=== PATIENT | male | born 1995 | race Caucasian/White ===

== ENCOUNTER 2018-01-13 19:34 | Emergency (ER) | payer OTHER, SELFPAY ==
[2018-01-13 19:37] VITALS: BP 132/77; PULSE 70; RESP 17; TEMP 36.7; O2SAT 100; BMI 29.2
--- NOTE | 2018-01-13 19:37 | ED_ITS ---
HPI - URI/Sore Throat <Thuy Perez PA-C - Last Filed: 01/13/18 21:58> General Chief Complaint: Ear Stated Complaint: SINUS INFECTION,FEVER,LEFT EYE ITCHING RED Time Seen by Provider: 01/13/18 19:36 Source: patient Mode of arrival: ambulatory Limitations: no limitations History of Present Illness HPI Narrative: This generally healthy 22-year-old complains of 2 day history of mild sore throat, then discolored nasal drainage and congestion. He states that along with this, both ears have been hurting, but especially on the left side. He did rinse them with peroxide, but still feel congested and painful. Today, he has had left eye itching and irritation with discolored drainage. He states that his vision is okay. He has had some chills and sweats, unknown whether any fever. He denies cough, wheeze, or dyspnea. 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 He denies any rash or other complaints on systems review. Related Data Home Medications Medication Instructions Recorded Confirmed bupropion HCl [Wellbutrin XL] 150 mg PO QAM 01/13/18 01/13/18 Previous Rx's Medication Instructions Recorded buspirone 5 mg PO BID #60 tab 08/01/17 sertraline [Zoloft] 150 mg PO QDAY #45 tab 08/01/17 azithromycin 250 mg PO DAILY 4 Days tab 01/13/18 Allergies Allergy/AdvReac Type Severity Reaction Status Date / Time amoxicillin [AMOXICILLIN] AdvReac Intermediate RASH Verified 01/13/18 19:40 Review of Systems <Thuy Perez PA-C - Last Filed: 01/13/18 21:58> Review of Systems All systems reviewed & are unremarkable except as noted in HPI and below Exam <Thuy Perez PA-C - Last Filed: 01/13/18 21:58> Narrative Exam Narrative: GENERAL APPEARANCE: Patient sitting comfortably, in no distress. HEAD: No sinus TTP. EYES: PERRL, EOMI. Left conjunctiva is injected with moderate. Went drainage EARS: Normal auditory canals, TMS intact, left is erythematous and flat, right is dull ORAL CAVITY: Normal oropharynx. THROAT: Minimal erythema, no exudate, PND noted NECK/THYROID: Neck supple, full range of motion, few small anterior cervical nodes, no posterior or supraclavicular nodes LUNGS: Clear to auscultation bilaterally, no cough on exam. HEART: RRR without murmur, nl S1, S2, no S3 or S4. Initial Vital Signs Initial Vital Signs: Vital Signs Temperature 98.0 F 01/13/18 19:37 Pulse Rate 70 01/13/18 19:37 Respiratory Rate 17 01/13/18 19:37 Blood Pressure 132/77 H 01/13/18 19:37 Pulse Oximetry 100 01/13/18 19:37 <Kane Macias DO - Last Filed: 01/14/18 04:59> Initial Vital Signs Initial Vital Signs: Vital Signs Temperature 98.0 F 01/13/18 19:37 Pulse Rate 70 01/13/18 19:37 Respiratory Rate 17 01/13/18 19:37 Blood Pressure 132/77 H 01/13/18 19:37 Pulse Oximetry 100 01/13/18 19:37 Course <Thuy Perez PA-C - Last Filed: 01/13/18 21:58> Orders Ordered: Discontinued Medications Azithromycin (Zithromax) 500 mg PO NOW ONE Stop: 01/13/18 19:58 Last Admin: 01/13/18 20:15 Dose: 500 mg Polymyxin/Trimethoprim Sulfate (Polytrim Prepack) 1 bottle MISC SEEINSTR ONE Stop: 01/13/18 19:58 Last Admin: 01/13/18 20:14 Dose: 1 drop Vital Signs - 8 hr 01/13/18 19:37 Temperature 98.0 F Pulse Rate 70 Respiratory Rate 17 Blood Pressure 132/77 H Pulse Oximetry 100 <Kane Macias DO - Last Filed: 01/14/18 04:59> Orders Ordered: Discontinued Medications Azithromycin (Zithromax) 500 mg PO NOW ONE Stop: 01/13/18 19:58 Last Admin: 01/13/18 20:15 Dose: 500 mg Polymyxin/Trimethoprim Sulfate (Polytrim Prepack) 1 bottle MISC SEEINSTR ONE Stop: 01/13/18 19:58 Last Admin: 01/13/18 20:14 Dose: 1 drop Vital Signs - 8 hr 01/13/18 19:37 Temperature 98.0 F Pulse Rate 70 Respiratory Rate 17 Blood Pressure 132/77 H Pulse Oximetry 100 Discharge Plan Departure Patient Disposition: Home, Self-Care Clinical Impression: Otitis media, Conjunctivitis Discharge Date/Time: 01/13/18 20:30 Interventions: ED Discharge Assessment Last Done: 01/13/18 20:29 Instructions: Middle Ear Infection, DI for Conjunctivitis Activity Restrictions/Additional Instructions: You have a left ear infection and pinkeye in your left eye. As we talked about , this could be viral given your exposures at work, however given the pain and appearance of your left ear versus the right, it is reasonable to treat with antibiotics for a bacterial infection. 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 Use a warm pack or washcloth on your eye frequently to help with the irritation and drainage. You may use artificial tears as well. Apply the antibiotic drops every 6 hours (2 drops) to the left eye while awake. Return as we discussed if you are feeling acutely worse. You should follow up with your PCP if not feeling better after a few days on the medications. Prescriptions: New azithromycin 250 mg tablet 250 mg PO DAILY 4 Days RF: 0 No Action buspirone 5 MG tablet 5 mg PO BID Qty: 60 RF: 2 sertraline [Zoloft] 100 MG tablet 150 mg PO QDAY Qty: 45 RF: 2 bupropion HCl [Wellbutrin XL] 150 mg Tablet Extended Release 24 Hr 150 mg PO QAM RF: 0 Referrals: [facility] [Other] <Kane Macias DO - Last Filed: 01/14/18 04:59> [facility]cece ED Attending Basil Attestation: I was immediately available in the department for consultation. Documentation has been reviewed. I agree with assessment and plan.
[2018-01-13] MEDS: POLYMY B/TRIMETH OPHTH PREPACK 1 BOTTLE MISC (20:14)
[2018-01-13] MEDS: AZITHROMYCIN 250 MG TABLET 500 MG PO (20:15)
== END 2018-01-13 20:30 | disposition home or self-care (01) ==
PROVIDERS: Emergency Provider Internal Medicine; PCP Family Medicine
DX: H66.90 Otitis media, unspecified, unspecified ear (principal); H10.9 Unspecified conjunctivitis
CPT/HCPCS: 99282; 99283

== ENCOUNTER → 2020-02-17 15:09 | Outpatient (CLI) | payer OTHER, SELFPAY ==
--- NOTE | 2020-02-17 | DI.CT.S_ITS ---
PROCEDURE: CT KIDNEY URETER BLADDER (KUB) INDICATIONS: Unspecified renal colic TECHNIQUE: Noncontrast 5 mm thick sections acquired from the diaphragms to the symphysis. 5 mm thick coronal and sagittal reformats were then performed. For radiation dose reduction, the following was used: automated exposure control, adjustment of mA and/or kV according to patient size. COMPARISON: None. FINDINGS: Image quality: Excellent. Lung bases: Lung bases are clear. Heart size is normal. Urinary system: Both kidneys are normal in size. There is a nonobstructing 2 mm calculus within the left interpolar kidney. There is a nonobstructing 2 mm calculus within the right interpolar kidney. No hydronephrosis or perinephric fat stranding. There is mild right ureteral dilatation proximally. There is a 3 mm calculus within the proximal right ureter. There is a 3 mm calculus within the distal right ureter. No left ureteral dilatation or calcification. Bladder wall thickness is normal; no calcified bladder stones. Other solid organs: Liver is normal in size. Gallbladder is within normal limits. Pancreas is normal in contours. Spleen is normal in size. No adrenal nodules. Peritoneum and bowel: Unenhanced bowel loops demonstrate normal wall thickness and caliber. No free fluid or air. Normal appendix. Nodes and vessels: No retroperitoneal or mesenteric adenopathy by size criteria. Aorta and inferior vena cava are normal in caliber. Abdominal wall: No ventral hernias. Pelvis: No free pelvic fluid. No inguinal hernias or adenopathy. Bones: No suspicious bony lesions. No vertebral body compression fractures. IMPRESSION: 1. Nonobstructing bilateral renal calculi. 2. Nonobstructing right ureteral calculi. 3. Normal appendix. Dictated by: Amauri Jimenez M.D. on 02/17/2020 at 17:16 Approved by: Amauri Jimenez M.D. on 02/17/2020 at 17:18
== END ==
PROVIDERS: PCP Physician Assistant Medical; Referring Provider Physician Assistant Medical; Visit Provider Physician Assistant Medical
DX: N23 Unspecified renal colic (principal); N20.0 Calculus of kidney; N20.1 Calculus of ureter; Z87.442 Personal history of urinary calculi
CPT/HCPCS: 74176

== ENCOUNTER 2020-02-20 23:58 | Emergency (ER) | payer OTHER, SELFPAY ==
--- NOTE | 2020-02-21 00:22 | ED.GENADULT ---
HPI - General Adult General Chief complaint: Back Pain/Injury Stated complaint: kidney stone pain Time Seen by Provider: 02/21/20 00:10 Source: patient Mode of arrival: Ambulatory Limitations: no limitations History of Present Illness HPI narrative: Patient is a 24-year-old male here for evaluation right-sided flank pain and when he thinks is a kidney stone. He states that he has had kidney stones before specially on the right side and this feels just like this. He states that her of this week he had a CT scan performed at this hospital for evaluation of the stones. This is ordered by his primary provider. He does not know of the results of the CT scan. Did try a oral pain medication at home without any improvement of his symptoms. Had vomiting in the waiting room. Was diaphoretic. Related Data Previous Rx's Medication Instructions Recorded buspirone 5 mg tablet 5 mg PO BID #180 tab 09/11/19 bupropion HCl 150 mg 24 hr tablet, 150 mg PO QAM #90 tab 12/26/19 extended release sertraline 100 mg tablet 200 mg PO DAILY #180 tab 12/30/19 Allergies Allergy/AdvReac Type Severity Reaction Status Date / Time amoxicillin [AMOXICILLIN] AdvReac Intermediate RASH Verified 01/07/20 10:38 Review of Systems Constitutional Constitutional: Denies fever(s) Cardiovascular Cardiovascular: Denies chest pain and Denies dyspnea Respiratory Respiratory: Denies dyspnea Gastrointestinal Gastrointestinal: Reports abdominal pain, Denies change in bowel habits, Reports nausea and Reports vomiting Genitourinary Genitourinary: Denies dysuria Genitourinary: Denies dysuria Musculoskeletal Musculoskeletal: Denies arthralgias and Denies myalgias Integumentary/Breasts Skin/Breast: Denies rash Neurologic Neurologic: Denies behavioral changes Psychiatric Psychiatric: Denies behavioral changes Hematologic/Lymphatic Hematologic/Lymphatic: Denies easy bleeding and Denies easy bruising Allergic/Immunologic Allergic/Immunologic: Denies urticaria Patient History Medical History Depression with anxiety (Chronic) Nephrolithiasis (Resolved) Surgical History History of lumpectomy of both breasts (Resolved) Hx of tympanostomy tubes (Resolved) Spermatocele (Resolved) Social History Smoking Status: Current every day smoker Tobacco: How many years used: 4 alcohol intake: never substance use type: marijuana Smoking Status: Current every day smoker (1/2 ppd approx) alcohol intake frequency: 0-2 drinks per day Substance Use Type: marijuana Exam Initial Vital Signs Initial Vital Signs: Vital Signs Pulse Rate 40 L 02/21/20 00:40 Respiratory Rate 15 02/21/20 00:40 Blood Pressure 154/90 H 02/21/20 00:40 Pulse Oximetry 99 02/21/20 00:40 Const General: cooperative, No comfortable and diaphoretic Limitations: mental status not altered HENMT Head: normal to inspection and normocephalic Resp Effort & Inspection: normal respiratory effort Cardio Rate: regular rate Back/Spine/Pelvis Back: CVA tenderness right Skin Lesions: no lesions Rashes: no rashes Neuro General: patient alert and patient awake Cognition: normal cognition Speech: speech normal Extrem General: normal to inspection and capillary refill normal Psych Appearance: grossly normal and well kempt Course Orders Ordered: ED Orders 02/21/20 00:15 Urinalysis and Microscopic Stat 02/21/20 00:25 Basic Metabolic Panel Stat Complete Blood Count AUTO DIFF Stat Discontinued Medications Hydromorphone HCl (Dilaudid) 1 mg IV NOW ONE Stop: 02/21/20 00:39 Last Admin: 02/21/20 00:48 Dose: 1 mg Documented by: BRYON Lidocaine HCl 6.9 ml/ Sodium (Chloride) 56.9 mls @ 341.4 mls/hr IV NOW ONE Stop: 02/21/20 00:37 Last Admin: 02/21/20 00:46 Dose: Not Given Documented by: BRYON Ketorolac Tromethamine (Toradol) 30 mg IV NOW ONE Stop: 02/21/20 00:27 Last Admin: 02/21/20 00:37 Dose: 30 mg Documented by: MARY Ondansetron HCl (Zofran) 4 mg IV NOW ONE Stop: 02/21/20 00:27 Last Admin: 02/21/20 00:37 Dose: 4 mg Documented by: MARY Ondansetron HCl (Zofran Odt Prepack) 1 bottle MISC SEEINSTR ONE Stop: 02/21/20 02:00 Last Admin: 02/21/20 02:14 Dose: 1 bottle Documented by: MARY Vital Signs Vital signs: Vital Signs - 8 hr 02/21/20 00:40 02/21/20 00:41 02/21/20 01:00 Temperature 98.3 F Pulse Rate 40 L 42 L 40 L Respiratory Rate 15 21 22 Blood Pressure 154/90 H 148/90 H Pulse Oximetry 99 97 96 02/21/20 01:02 02/21/20 01:30 02/21/20 02:00 Temperature Pulse Rate 45 L 44 L 51 L Respiratory Rate 19 19 22 Blood Pressure 135/81 108/60 110/60 Pulse Oximetry 96 97 100 Medical Decision Making Lab Data Lab results reviewed: Yes I reviewed the patient's lab results. Result diagrams: 02/21/20 00:25 02/21/20 00:25 Labs: Lab Results 02/21/20 02/21/20 02/21/20 Range/Units 00:15 00:25 00:25 WBC 18.1 H (4.5-11.0) X10^3/uL RBC 4.77 (4.5-5.9) X10^6/uL Hgb 15.4 (13.5-17.5) g/dL Hct 43.6 (41-53) % MCV 91.4 (80-100) fL MCH 32.4 (26-34) PG MCHC 35.4 (30-36) % RDW 12.9 (11.6-14.8) % Plt Count 297 (150-400) X10^3/uL Neut % (Auto) 79.1 H (50-75) % Lymph % (Auto) 11.7 L (25-40) % [place] % (Auto) 7.3 (3-14) % Eos % (Auto) 1.2 L (2-4) % Baso % (Auto) 0.7 (0-2) % Neut # (Auto) 28489 H (5872-3662) /uL Lymph # (Auto) 2100 (3958-3765) /uL [place] # (Auto) 1300 H (0-900) /uL Eos # (Auto) 200 (0-450) /uL Baso # (Auto) 100 (0-100) /uL Sodium 140 (137-145) mmol/L Potassium 3.9 (3.4-5.1) mmol/L Chloride 106 (98-107) mmol/L Carbon Dioxide 23 (22-32) mmol/L BUN 23 H (9-20) mg/dL Creatinine 0.99 (0.66-1.25) mg/dL Estimated GFR > 60.0 (>60) mL/min BUN/Creatinine Ratio 23.2 H (6-22) Glucose 149 H (70-100) mg/dL Calcium 9.5 (8.4-10.2) mg/dL Urine Color Yellow Urine Appearance Clear Urine pH 5.0 (4.5-8.0) Ur Specific [place] >=1.030 H (1.000-1.035) Urine Protein 1+ H (Negative) Urine Glucose (UA) Negative (Negative) g/dL Urine Ketones Trace H (NEGATIVE) Urine Occult Blood 3+ H (Negative) Urine Nitrate Negative (Negative) Urine Bilirubin Negative (NEGATIVE) Urine Urobilinogen 0.2 (0.2) E.U./dL Ur Leukocyte Esterase Negative (NEGATIVE) Urine RBC 1-5/hpf (0-5/HPF) Urine WBC 0-1/hpf (0-5/HPF) Urine Bacteria None seen (None) Urine Mucus 1+ H (Negative) Ur Culture Indicated? Cult not indicated Imaging Data CT scan - abdomen/pelvis: Radiologist's Impression: Geovani Chery 24 M 1995 [place] [address] CT Scan Report Signed Patient: Geovani Chery CMR#: [id number] : 1995Acct:[id number] Age/Sex: 24 / MDate of Service: 02/17/20 Loc: CT Accession Number: [id number] Procedure: CT kidney ureter bladder (KUB) Ordering Provider: Mellisa Pierre PROCEDURE: CT KIDNEY URETER BLADDER (KUB) INDICATIONS: Unspecified renal colic TECHNIQUE: Noncontrast 5 mm thick sections acquired from the diaphragms to the symphysis. 5 mm thick coronal and sagittal reformats were then performed. For radiation dose reduction, the following was used: automated exposure control, adjustment of mA and/or kV according to patient size. COMPARISON: None. FINDINGS: Image quality: Excellent. Lung bases: Lung bases are clear. Heart size is normal. Urinary system: Both kidneys are normal in size. There is a nonobstructing 2 mm calculus within the left interpolar kidney. There is a nonobstructing 2 mm calculus within the right interpolar kidney. No hydronephrosis or perinephric fat stranding. There is mild right ureteral dilatation proximally. There is a 3 mm calculus within the proximal right ureter. There is a 3 mm calculus within the distal right ureter. No left ureteral dilatation or calcification. Bladder wall thickness is normal; no calcified bladder stones. Other solid organs: Liver is normal in size. Gallbladder is within normal limits. Pancreas is normal in contours. Spleen is normal in size. No adrenal nodules. Peritoneum and bowel: Unenhanced bowel loops demonstrate normal wall thickness and caliber. No free fluid or air. Normal appendix. Nodes and vessels: No retroperitoneal or mesenteric adenopathy by size criteria. Aorta and inferior vena cava are normal in caliber. Abdominal wall: No ventral hernias. Pelvis: No free pelvic fluid. No inguinal hernias or adenopathy. Bones: No suspicious bony lesions. No vertebral body compression fractures. IMPRESSION: 1. Nonobstructing bilateral renal calculi. 2. Nonobstructing right ureteral calculi. 3. Normal appendix. Dictated by: Amauri Jimenez M.D. on 02/17/2020 at 17:16 Approved by: Amauri Jimenez M.D. on 02/17/2020 at 17:18 MDM Narrative Medical decision making narrative: The CT scan reported in this note is for reference purposes only. It was not ordered or performed during this emergency department visit. It was reviewed by myself. It does show to right-sided ureteral stones. Patient's urine today shows no signs of infection. Patient's chemistry shows no signs of acute kidney injury. The CT scan was performed several days ago however patient's presentation today is consistent with renal colic. I feel we can hold on any radiologic studies for now. Patient stated that it felt much better after medications. He has already collected a stone in the past and has been given to his primary provider for analysis. Informed him that he should contact his primary provider for follow-up. He was given strict return precautions. He expressed understanding and agreement. Discharge Plan Departure Patient Disposition: Home Clinical Impression: Renal colic on right side Discharge Date/Time: 02/21/20 02:23 Instructions: Kidney Stones -- Adult Activity Restrictions/Additional Instructions: Keep all of your scheduled medical appointments. Continue with the pain medication as directed. I do recommend you contact your primary provider tomorrow for follow-up and to discuss the CT results in more detail. Return to the emergency department for any new or worsening symptoms Prescriptions: No Action buspirone 5 mg tablet 5 mg PO BID Qty: 180 RF: 3 bupropion HCl [Wellbutrin XL] 150 mg tablet extended release 24 hr 150 mg PO QAM Qty: 90 RF: 3 sertraline 100 mg tablet 200 mg PO DAILY Qty: 180 RF: 3 Referrals: Mellisa Pierre [Primary Care Provider] -
[2020-02-21 00:28] LABS: Bacteria Urine None Seen
[2020-02-21 00:35] LABS: Add Manual Diff / Slide Review NO; Basophils Absolute Auto 100 /uL (0-100); Basophils Percent Auto 0.7 % (0-2); Eosinophils Absolute Auto 200 /uL (0-450); Eosinophils Percent Auto 1.2 % (2-4); Hematocrit 43.6 % (41-53); Hemoglobin 15.4 g/dL (13.5-17.5); Lymphocytes Absolute Auto 2100 /uL (1100-4500); Lymphocytes Percent Auto 11.7 % (25-40); Mean Corpuscular HGB Conc 35.4 % (30-36); Mean Corpuscular Hemoglobin 32.4 PG (26-34); Mean Corpuscular Volume 91.4 fL (80-100); Monocytes Absolute Auto 1300 /uL (0-900); Monocytes Percent Auto 7.3 % (3-14); Neutrophils Absolute Auto 14300 /uL (1500-7000); Neutrophils Percent Auto 79.1 % (50-75); Platelet Count 297 X10^3/uL (150-400); Red Blood Cell Count 4.77 X10^6/uL (4.5-5.9); Red Cell Distribution Width 12.9 % (11.6-14.8); White Blood Cell Count 18.1 X10^3/uL (4.5-11.0)
[2020-02-21 00:37] LABS: Appearance Urine UA CLEAR; Bilirubin Urine UA NEGATIVE (NEGATIVE); Color Urine UA YELLOW; Glucose Urine UA NEGATIVE (Negative); Ketones Urine UA TRACE (NEGATIVE); Leukocyte Esterase Urine UA NEGATIVE (NEGATIVE); Nitrite Urine UA NEGATIVE (Negative); Occult Blood Urine UA 3+ (Negative); Protein Urine UA 1+ (Negative); Specific Gravity Urine UA >=1.030 (1.000-1.035); Urobilinogen Urine UA 0.2 E.U./dL (0.2)
[2020-02-21] MEDS: KETOROLAC 60 MG/2 ML VIAL 30 MG IV (00:37)
[2020-02-21] MEDS: ONDANSETRON 4 MG/2 ML INJ IV (00:37)
[2020-02-21 00:40] VITALS: BP 154/90; PULSE 40; RESP 15; O2SAT 99
[2020-02-21 00:41] VITALS: BP 148/90; PULSE 42; RESP 21; TEMP 36.8; O2SAT 97; BMI 27.5
[2020-02-21 00:47] LABS: Culture Indicated Urine Cult Not Indicated; Mucus Urine 1+ (Negative); RBC Urine 1-5/HPF (0-5/HPF); WBC Urine 0-1/HPF (0-5/HPF)
[2020-02-21] MEDS: HYDROMORPHONE 1 MG INJ IV (00:48)
[2020-02-21 00:56] LABS: BUN Creatinine Ratio 23.2 (6-22); Blood Urea Nitrogen 23 mg/dL (9-20); Calcium 9.5 mg/dL (8.4-10.2); Carbon Dioxide 23 mmol/L (22-32); Chloride 106 mmol/L (98-107); Estimated Glomerular Filt Rate > 60.0 mL/min (>60); Glucose 149 mg/dL (70-100); HEMOLYSIS < 15 (0-50); Potassium 3.9 mmol/L (3.4-5.1); Sodium 140 mmol/L (137-145)
[2020-02-21 01:00] VITALS: PULSE 40; RESP 22; O2SAT 96
[2020-02-21 01:02] VITALS: BP 135/81; PULSE 45; RESP 19; O2SAT 96
[2020-02-21 01:30] VITALS: BP 108/60; PULSE 44; RESP 19; O2SAT 97
[2020-02-21 02:00] VITALS: BP 110/60; PULSE 51; RESP 22; O2SAT 100
[2020-02-21] MEDS: ONDANSETRON 4 MG ODT PREPACK 1 BOTTLE MISC (02:14)
== END 2020-02-21 02:23 | disposition home or self-care (01) ==
PROVIDERS: Emergency Provider Emergency Medicine; PCP Physician Assistant Medical
DX: N23 Unspecified renal colic (principal); N20.0 Calculus of kidney; Z87.442 Personal history of urinary calculi; R11.2 Nausea with vomiting, unspecified
CPT/HCPCS: 36415; 80048; 81001; 85025; 96374; 96375; 99284; J1170; J1885; J2405

== ENCOUNTER 2020-02-27 21:58 | Emergency (ER) | payer OTHER, SELFPAY ==
[2020-02-27] VITALS (8 sets, daily range): BP systolic 112–136; BP diastolic 67–72; PULSE 53–70; RESP 18; TEMP 36.8; O2SAT 97–99
--- NOTE | 2020-02-27 22:33 | DI.CT.S_ITS ---
PROCEDURE: CT ABDOMEN PELVIS WO CON INDICATIONS: Right flank pain/kidney stone TECHNIQUE: Noncontrast 5 mm thick sections acquired from the diaphragms to the symphysis. 5 mm coronal and sagittal reformats were then performed. For radiation dose reduction, the following was used: automated exposure control, adjustment of mA and/or kV according to patient size. COMPARISON: None. FINDINGS: Image quality: Excellent. ABDOMEN: Lung bases: Lung bases are clear. Heart size is normal. Solid organs: Liver is normal in size. Gallbladder is unremarkable. Pancreas is normal in contours. Spleen is normal in size. No adrenal nodules. Kidneys are normal in size. There are tiny punctate bilateral nephroliths. No evidence for obstruction or ureteral stones on the left. There is a 3.0 mm distal right ureteral stone as well as a 3.5 mm distal right ureteral stone visualized at the right ureterovesicular junction. Urinary bladder is partially decompressed. There is mild right hydroureteronephrosis. No significant right-sided perinephric stranding. Peritoneum and bowel: Unenhanced bowel loops demonstrate normal wall thickness and caliber. No free fluid or air. Nodes and vessels: No retroperitoneal or mesenteric adenopathy by size criteria. Aorta and inferior vena cava are normal in caliber. Miscellaneous: No ventral hernias. PELVIS: Genitourinary: Bladder wall thickness is normal for degree of decompression. No bladder stones identified. Miscellaneous: No inguinal hernias or adenopathy. Bones: No suspicious bony lesions. No vertebral body compression fractures. IMPRESSION: 1. Bilateral nephrolithiasis with obstructing 3.0 mm distal right ureteral stone and obstructing 3.5 mm right ureterovesicular junction stone. Mild right hydroureteronephrosis. No significant discrepancy with the maintenance supervisor 2nd shift radiology preliminary report. Dictated by: Nic Whitmore M.D. on 02/28/2020 at 8:04 Approved by: Nic Whitmore M.D. on 02/28/2020 at 8:27
--- NOTE | 2020-02-27 22:34 | ED.BACK ---
HPI - Back Pain/Injury General Chief Complaint: Back Pain/Injury Stated Complaint: KIDNEY STONES PAIN Time Seen by Provider: 02/27/20 22:05 Source: patient and family Limitations: no limitations History of Present Illness HPI Narrative: Patient here with mother. Seen here February 20 for right ureteral stone. At the CT scan before ER visit on February 17 by family physician. Has appointment with Urology in [place] on March 22. There was early CT be seen. Past history of kidney stone without surgical intervention. Denies any fever chills nausea vomiting. Patient states pain is never left. Continues to wax and wane. Currently 11/28. Still able to urinate patient had refill of pain medication and nausea medication and Flomax with family physician yesterday. CT scan below from previous [place] [address] CT Scan Report Signed Patient: Geovani Chery CMR#: [id number] : 1995Acct:[id number] Age/Sex: 24 / MDate of Service: 02/17/20 Loc: CT Accession Number: [id number] Procedure: CT kidney ureter bladder (KUB) Ordering Provider: Mellisa Pierre PROCEDURE: CT KIDNEY URETER BLADDER (KUB) INDICATIONS: Unspecified renal colic TECHNIQUE: Noncontrast 5 mm thick sections acquired from the diaphragms to the symphysis. 5 mm thick coronal and sagittal reformats were then performed. For radiation dose reduction, the following was used: automated exposure control, adjustment of mA and/or kV according to patient size. COMPARISON: None. FINDINGS: Image quality: Excellent. Lung bases: Lung bases are clear. Heart size is normal. Urinary system: Both kidneys are normal in size. There is a nonobstructing 2 mm calculus within the left interpolar kidney. There is a nonobstructing 2 mm calculus within the right interpolar kidney. No hydronephrosis or perinephric fat stranding. There is mild right ureteral dilatation proximally. There is a 3 mm calculus within the proximal right ureter. There is a 3 mm calculus within the distal right ureter. No left ureteral dilatation or calcification. Bladder wall thickness is normal; no calcified bladder stones. Other solid organs: Liver is normal in size. Gallbladder is within normal limits. Pancreas is normal in contours. Spleen is normal in size. No adrenal nodules. Peritoneum and bowel: Unenhanced bowel loops demonstrate normal wall thickness and caliber. No free fluid or air. Normal appendix. Nodes and vessels: No retroperitoneal or mesenteric adenopathy by size criteria. Aorta and inferior vena cava are normal in caliber. Abdominal wall: No ventral hernias. Pelvis: No free pelvic fluid. No inguinal hernias or adenopathy. Bones: No suspicious bony lesions. No vertebral body compression fractures. IMPRESSION: 1. Nonobstructing bilateral renal calculi. 2. Nonobstructing right ureteral calculi. 3. Normal appendix. Dictated by: Amauri Jimenez M.D. on 02/17/2020 at 17:16 Approved by: Amauri Jimenez M.D. on 02/17/2020 at 17:18 Related Data Previous Rx's Medication Instructions Recorded buspirone 5 mg tablet 5 mg PO BID #180 tab 09/11/19 bupropion HCl 150 mg 24 hr tablet, 150 mg PO QAM #90 tab 12/26/19 extended release sertraline 100 mg tablet 200 mg PO DAILY #180 tab 12/30/19 Allergies Allergy/AdvReac Type Severity Reaction Status Date / Time amoxicillin [AMOXICILLIN] AdvReac Intermediate RASH Verified 01/07/20 10:38 Review of Systems Review of Systems Narrative: GENERAL: Denies chills, fatigue, malaise, fever, sweats. HEENT: Denies sinus pain, ear pain, sore throat, difficulty swallowing, dizziness. RESPIRATORY: Denies dyspnea, cough, wheezing, hemoptysis, sputum. CARDIOVASCULAR: Denies chest pain, palpitations, orthopnea, edema, GASTROINTESTINAL: Denies nausea, vomiting, diarrhea, constipation, melena. Complains of right lower abdominal pain : Denies dysuria, frequency, incontinence, hematuria, urinary retention. MUSCULOSKELETAL: denies weakness, joint pain, or bony pain SKIN: Denies rash, skin lesions, or other NEUROLOGIC: Denies weakness, headache, numbness, change in speech, confusion, seizures, incoordination. PSYCHIATRIC: No concerning psychosocial issues. ROS Unobtainable: All systems reviewed & are unremarkable except as noted in HPI and below Patient History Medical History Depression with anxiety (Chronic) Nephrolithiasis (Resolved) Surgical History History of lumpectomy of both breasts (Resolved) Hx of tympanostomy tubes (Resolved) Spermatocele (Resolved) Social History Smoking Status: Current every day smoker Tobacco: How many years used: 4 alcohol intake: never substance use type: marijuana Smoking Status: Current every day smoker alcohol intake frequency: 0-2 drinks per day Substance Use Type: marijuana Exam Narrative Exam Narrative: GENERAL: patient appears stated age. Well-nourished, well-developed patient, in no distress, not toxic HEAD: Atraumatic. Normocephalic. EYES: Pupils equal round and reactive. Extraocular motions intact. No scleral icterus. No injection or drainage. ENT: Nose without bleeding, purulent drainage. Throat without erythema, tonsillar hypertrophy or exudate. Airway patent. NECK: Trachea midline. Non tender CARDIOVASCULAR: Regular rate and rhythm without murmurs, gallops, or rubs. RESPIRATORY: Clear to auscultation. Breath sounds equal bilaterally. No wheezes, rales, or rhonchi. GASTROINTESTINAL: Abdomen soft, nondistended. Mild tenderness to the right lower quadrant. No peritoneal signs. Normal bowel sounds EXTREMITIES: No edema or joint tenderness. BACK: Nontender without deformity or crepitance. No flank tenderness. NEURO: AOx3. SKIN: No rash or erythema of visible areas Initial Vital Signs Initial Vital Signs: Vital Signs Pulse Rate 70 02/27/20 22:02 Pulse Oximetry 99 02/27/20 22:02 Course Course Course Narrative: Not toxic during course of stay. Pain has improved since passing 1 of the stones. Mom and patient desire discharge home. Orders Ordered: ED Orders 02/27/20 22:33 CT abdomen pelvis wo con Stat 02/27/20 23:12 Complete Blood Count AUTO DIFF Stat Comprehensive Metabolic Panel Stat Discontinued Medications Sodium Chloride (Normal Saline 0.9%) 1,000 mls @ 1,000 mls/hr IV BOLUS ONE Stop: 02/27/20 23:31 Last Infusion: 02/28/20 00:04 Dose: 0 mls/hr Documented by: Admin: 02/27/20 23:09 Dose: 1,000 mls/hr Documented by: RUSSELL Ketorolac Tromethamine (Toradol) 15 mg IV NOW ONE Stop: 02/27/20 23:47 Last Admin: 02/27/20 23:51 Dose: 15 mg Documented by: RNESTER Reevaluation(s) Reevaluation #1: Feels much better after passing for stone. They desire discharge home. Time: 23:53 Consultations Consultation #1: [facility] oncall dr moran...pt to call office in am for office time...no abx at this time.. Likely stress response from kidney stone passage Time: 23:49 Vital Signs Vital signs: Vital Signs - 8 hr 02/27/20 22:02 02/27/20 22:03 02/27/20 22:07 Temperature 98.2 F Pulse Rate 70 61 64 Respiratory Rate 18 Blood Pressure 136/72 136/72 Pulse Oximetry 99 98 98 02/27/20 22:30 02/27/20 22:56 02/27/20 23:00 Temperature Pulse Rate 58 L 53 L 56 L Respiratory Rate Blood Pressure 112/68 114/71 Pulse Oximetry 98 98 97 02/27/20 23:32 02/27/20 23:33 02/28/20 00:04 Temperature Pulse Rate 64 62 60 Respiratory Rate 18 Blood Pressure 121/67 120/60 Pulse Oximetry 97 97 98 MDM - Back Pain/Injury Lab Data Result diagrams: 02/27/20 23:12 02/27/20 23:12 Labs: Lab Results 02/27/20 02/27/20 Range/Units 23:12 23:12 WBC 13.4 H (4.5-11.0) X10^3/uL RBC 4.38 L (4.5-5.9) X10^6/uL Hgb 13.6 (13.5-17.5) g/dL Hct 40.6 L (41-53) % MCV 92.7 (80-100) fL MCH 31.1 (26-34) PG MCHC 33.5 (30-36) % RDW 13.0 (11.6-14.8) % Plt Count 241 (150-400) X10^3/uL Neut % (Auto) 78.4 H (50-75) % Lymph % (Auto) 10.9 L (25-40) % [place] % (Auto) 8.4 (3-14) % Eos % (Auto) 1.7 L (2-4) % Baso % (Auto) 0.6 (0-2) % Neut # (Auto) 57023 H (8317-7255) /uL Lymph # (Auto) 1500 (3849-8080) /uL [place] # (Auto) 1100 H (0-900) /uL Eos # (Auto) 200 (0-450) /uL Baso # (Auto) 100 (0-100) /uL Sodium 135 L (137-145) mmol/L Potassium 3.9 (3.4-5.1) mmol/L Chloride 105 (98-107) mmol/L Carbon Dioxide 23 (22-32) mmol/L BUN 17 (9-20) mg/dL Creatinine 1.01 (0.66-1.25) mg/dL Estimated GFR > 60.0 (>60) mL/min BUN/Creatinine Ratio 16.8 (6-22) Glucose 100 (70-100) mg/dL Calcium 8.8 (8.4-10.2) mg/dL Total Bilirubin 0.4 (0.2-1.3) mg/dL AST 22 (17-59) IU/L ALT 8 (<50) IU/L Alkaline Phosphatase 82 (38-126) U/L Total Protein 6.9 (6.3-8.2) g/dL Albumin 4.4 (3.5-5.0) g/dL Globulin 2.5 (1.7-4.1) g/dL Albumin/Globulin Ratio 1.8 (1.0-2.8) Urine Dip Bedside Urine Glucose Negative Bedside Urine Bilirubin + 1 Bedside Urine Ketone - Negative Urine Specific [place] 1.030 Bedside Urine Occult Blood +++ Bedside Urine pH 5.5 Bedside Urine Protein +/- 15 Bedside Urine Urobilinogen - Negative Bedside Urine Nitrite - Negative Bedside Urine Leukocytes - Negative Esterase Imaging Data CT scan - abdomen/pelvis: Radiologist's Impression: Faxed report for CT scan abdomen pelvis shows right obstructive uropathy secondary to 3 mm distal ureteral and 3.5 mm UVJ calculi MDM Narrative Medical decision making narrative: Patient agrees with repeat CT scan. Stone likely still has not passed. Valuable CT scan tonight to determine for hydronephrosis Discharge Plan Departure Patient Disposition: Home Clinical Impression: Right distal ureteral calculus Discharge Date/Time: 02/28/20 00:05 Instructions: DI for Kidney Stones Activity Restrictions/Additional Instructions: Called provided urology office tomorrow morning to try to get earlier office time instead of March 22. Continue home medications. Return if worse. Drink plenty of water. Be sure to strain the urine for kidney stone each time urinating. Return if any questions or concerns Prescriptions: No Action buspirone 5 mg tablet 5 mg PO BID Qty: 180 RF: 3 bupropion HCl [Wellbutrin XL] 150 mg tablet extended release 24 hr 150 mg PO QAM Qty: 90 RF: 3 sertraline 100 mg tablet 200 mg PO DAILY Qty: 180 RF: 3 Referrals: Randell Moran MD [Physician] - Mellisa Pierre [Primary Care Provider] -
[2020-02-27] MEDS: SODIUM CHLORIDE 0.9% 1,000 ML 1000 ML IV (23:09)
[2020-02-27 23:22] LABS: Add Manual Diff / Slide Review NO; Basophils Absolute Auto 100 /uL (0-100); Basophils Percent Auto 0.6 % (0-2); Eosinophils Absolute Auto 200 /uL (0-450); Eosinophils Percent Auto 1.7 % (2-4); Hematocrit 40.6 % (41-53); Hemoglobin 13.6 g/dL (13.5-17.5); Lymphocytes Absolute Auto 1500 /uL (1100-4500); Lymphocytes Percent Auto 10.9 % (25-40); Mean Corpuscular HGB Conc 33.5 % (30-36); Mean Corpuscular Hemoglobin 31.1 PG (26-34); Mean Corpuscular Volume 92.7 fL (80-100); Monocytes Absolute Auto 1100 /uL (0-900); Monocytes Percent Auto 8.4 % (3-14); Neutrophils Absolute Auto 10500 /uL (1500-7000); Neutrophils Percent Auto 78.4 % (50-75); Platelet Count 241 X10^3/uL (150-400); Red Blood Cell Count 4.38 X10^6/uL (4.5-5.9); White Blood Cell Count 13.4 X10^3/uL (4.5-11.0)
[2020-02-27 23:31] LABS: Alanine Aminotransferase 8 IU/L (<50); Albumin 4.4 g/dL (3.5-5.0); Albumin Globulin Ratio 1.8 (1.0-2.8); Alkaline Phosphatase 82 U/L (38-126); Aspartate Aminotransferase 22 IU/L (17-59); BUN Creatinine Ratio 16.8 (6-22); Bilirubin Total 0.4 mg/dL (0.2-1.3); Blood Urea Nitrogen 17 mg/dL (9-20); Calcium 8.8 mg/dL (8.4-10.2); Carbon Dioxide 23 mmol/L (22-32); Chloride 105 mmol/L (98-107); Estimated Glomerular Filt Rate > 60.0 mL/min (>60); Globulin 2.5 g/dL (1.7-4.1); Glucose 100 mg/dL (70-100); HEMOLYSIS 17 (0-50); Potassium 3.9 mmol/L (3.4-5.1); Sodium 135 mmol/L (137-145); Total Protein 6.9 g/dL (6.3-8.2)
--- NOTE | 2020-02-27 23:33 | PC.NURSE ---
Patient went to restroom and upon arrival back to room states he saw kidney stone in toilet. States his pain level has improved.
[2020-02-27] MEDS: KETOROLAC 60 MG/2 ML VIAL 15 MG IV (23:51)
[2020-02-28 00:04] VITALS: BP 120/60; PULSE 60; RESP 18; O2SAT 98
== END 2020-02-28 00:05 | disposition home or self-care (01) ==
PROVIDERS: Emergency Provider Emergency Medicine; PCP Physician Assistant Medical
DX: N20.1 Calculus of ureter (principal)
CPT/HCPCS: 36415; 74176; 80053; 81003; 85025; 96361; 96374; 99284; J1885

== ENCOUNTER → 2020-03-19 08:45 | Outpatient (CLI) | payer OTHER, SELFPAY ==
[2020-04-21 07:26] LABS: Ca oxalate dihydrate 90%; Ca oxalate monohydr 10%; Composition NO; Photo SEE EMR; Stone Analysis Source URINARY TRACT
== END ==
PROVIDERS: PCP Physician Assistant Medical; Visit Provider Specialist
DX: N20.0 Calculus of kidney (principal)
CPT/HCPCS: 82365

== ENCOUNTER → 2020-05-01 15:40 | Outpatient (CLI) | payer OTHER, SELFPAY ==
--- NOTE | 2020-05-01 15:42 | DI.RAD.S_ITS ---
PROCEDURE: XR KUB INDICATIONS: kidney stone TECHNIQUE: One view of the abdomen acquired. COMPARISON: [facility], CT, CT ABDOMEN PELVIS WO CON, 02/27/2020, 22:36. FINDINGS: Surgical changes and devices: None. Bowel: Bowel gas pattern is normal. Soft tissues: No suspicious abdominal calcifications. Visualized solid organ contours appear normal in size. Bones: No suspicious bony lesions. IMPRESSION: No urinary tract stone is found. Please note however that the urinary tract stones seen by CT scanning February of this year were very small and not expected to be accurately detectable by plain film. Dictated by: Juan Gardner M.D. on 05/01/2020 at 16:41 Approved by: Juan Gardner M.D. on 05/01/2020 at 16:42
[2020-05-01 17:06] LABS: Calcium 9.8 mg/dL (8.4-10.2); Uric Acid 4.5 mg/dL (3.5-8.5)
== END ==
PROVIDERS: PCP Physician Assistant Medical; Referring Provider Specialist; Visit Provider Specialist
DX: N20.0 Calculus of kidney (principal)
CPT/HCPCS: 36415; 74018; 82310; 83970; 84550

== ENCOUNTER → 2020-05-05 14:42 | Outpatient (CLI) | payer OTHER, SELFPAY ==
[2020-05-06 07:56] LABS: Parathyroid Hormone Int 27 pg/mL (15-65)
== END ==
PROVIDERS: PCP Physician Assistant Medical; Referring Provider Specialist; Visit Provider Specialist
DX: N20.0 Calculus of kidney (principal)
CPT/HCPCS: 83970

== ENCOUNTER → 2021-02-25 12:48 | Outpatient (CLI) | payer OTHER, SELFPAY ==
--- NOTE | 2021-02-25 12:49 | DI.RAD.S_ITS ---
PROCEDURE: XR KUB INDICATIONS: Kidney stones TECHNIQUE: One view of the abdomen acquired. COMPARISON: [facility], CT, CT ABDOMEN PELVIS WO CON, 02/27/2020, 22:36. [facility], CR, XR KUB, 05/01/2020, 15:32. FINDINGS: Surgical changes and devices: None. Bowel: Bowel gas pattern is normal. Soft tissues: No suspicious abdominal calcifications. Visualized solid organ contours appear normal in size. Bones: No suspicious bony lesions. IMPRESSION: Unremarkable abdominal radiograph Dictated by: Andrea Fernandez M.D. on 02/25/2021 at 14:52 Approved by: Andrea Fernandez M.D. on 02/25/2021 at 15:03
== END ==
PROVIDERS: PCP Physician Assistant Medical; Referring Provider Specialist; Visit Provider Specialist
DX: Z87.442 Personal history of urinary calculi (principal); N20.0 Calculus of kidney
CPT/HCPCS: 74018

== ENCOUNTER → 2021-04-21 15:50 | Outpatient (ROUT) | payer OTHER, SELFPAY ==
[2021-04-27 14:21] LABS: Ca oxalate dihydrate 90 % (.); Ca oxalate monohydr 10 % (.); Size 4x3 mm (.)
== END ==
PROVIDERS: PCP Physician Assistant Medical; Visit Provider Specialist
DX: N20.0 Calculus of kidney (principal)
CPT/HCPCS: 82365